=== PATIENT | female | born 1990 | race African-American/Black ===

== ENCOUNTER 2016-05-30 13:05 | Emergency (ER) | payer MEDICAID ==
[~2016-05-30] VITALS: Ht 157.5 cm; Wt 68.0 kg
[2016-05-30 13:26] VITALS: BP 160/100
== END 2016-05-30 16:32 | disposition left against medical advice (07) ==
LOC: ER 13:24
DX: R10.30 Lower abdominal pain, unspecified (principal); Z53.21 Procedure and treatment not carried out due to patient leaving prior to being seen by health care provider

== ENCOUNTER 2016-06-01 10:58 | Inpatient (IN) | payer MEDICAID ==
[~2016-06-01] VITALS: Ht 162.6 cm; Wt 72.0 kg
[2016-06-01] MEDS ORDERED: SODIUM CHLORIDE 0.9% 1,000 ML IVB ONE (11:20)
[2016-06-01] MEDS ORDERED: ONDANSETRON HCL 4 MG/2 ML VIAL IV ONE ×2 (11:30→14:15)
[2016-06-01] MEDS ORDERED: MORPHINE SULFATE 4 MG/ML SYRG IV ONE (11:30)
[2016-06-01 12:56] LABS: Basophils # (auto) 0 uL; Basophils % (auto) 0.4 % (0.0-2.0); Eosinophils # (auto) 0 uL; Eosinophils % (auto) 0.1 % (0.0-7.0); Hematocrit 43.8 % (36.0-46.0); Hemoglobin 14.3 g/dL (12.2-16.2); Lymphocytes # (auto) 1.5 uL; Lymphocytes % (auto) 12.6 % (10.0-50.0); Mean Corpuscular Hemoglobin 29.2 pg (28.0-32.0); Mean Corpuscular Hgb Conc. 32.6 g/dL (32.0-36.0); Mean Corpuscular Volume 89.5 fL (80.0-100.0); Mean Platelet Volume 8.8 fL (7.4-10.4); Monocytes # (auto) 0.7 uL; Monocytes % (auto) 6.1 % (0.0-12.0); Neutrophils # (auto) 9.4 uL; Neutrophils % (auto) 80.8 % (37.0-80.0); Platelet Count (auto) 322 10^3/uL (140-450); Red Cell Distribution Width 13.3 % (11.6-16.0); White Blood Cell 11.6 10^3/uL (4.4-10.8)
[2016-06-01 13:05] LABS: Albumin 4.7 g/dL (3.4-5.0); BUN/Creatinine Ratio 13.1; Bilirubin, Total 0.8 mg/dL (0.2-1.0); Calcium 10.2 mg/dL (8.5-10.1); Total Protein 8.9 g/dL (6.4-8.2)
[2016-06-01 13:08] LABS: Potassium 2.7 mmol/L (3.5-5.1)
[2016-06-01] MEDS ORDERED: POTASSIUM CHL 10% (20 MEQ/15ML) ORAL SOLN PO ONE (13:15)
[2016-06-01 13:23] LABS: Urine Bilirubin Negative (Negative); Urine Blood 2+ /uL (Negative); Urine Color Yellow (Yellow); Urine Glucose Normal (Normal); Urine Ketone 3+ (Negative); Urine Mucus FEW (None Seen); Urine Nitrite Negative (Negative); Urine RBC 9 /hpf (0 - 4); Urine Squamous Epithelial Cell FEW /hpf (<5)
[2016-06-01] MEDS ORDERED: KETOROLAC TROMETH 30 MG/ML 1ML VIAL IV ONE (14:15)
[2016-06-01] MEDS ORDERED: HYDROmorphone HCL 2 MG/ML VL IV ONE (14:15)
[2016-06-01] MEDS ORDERED: CIPROFLOXACIN 400MG/200ML 200 ML IV ONE (14:30)
[2016-06-01] MEDS ORDERED: POTASSIUM CHLORIDE 40 MEQ, LIDOCAINE 1% (LOCAL ANESTH.) 4 ML in SODIUM CHL 0.9% 250 ML IV ONE (15:15)
[2016-06-01] MEDS ORDERED: MORPHINE SULF INJ 2 MG/ML SYRINGE 1ML IV PRN (15:15)
[2016-06-01] MEDS ORDERED: PANTOPRAZOLE SODIUM 40 MG/10 ML VIAL IV ONE (15:15)
[2016-06-01] MEDS ORDERED: NITROGLYCERIN 0.4 MG SL TAB SL PRN (15:15)
[2016-06-01] MEDS ORDERED: POTASSIUM CHL 20 Meq TABLET PO ONE (15:15)
[2016-06-01] MEDS: ONDANSETRON HCL 4 MG/2 ML VIAL IV PRN (17:40)
[2016-06-01] MEDS: MORPHINE SULF INJ 2 MG/ML SYRINGE 1ML IV PRN (17:40)
[2016-06-01] MEDS: HYDROcodone-ACET 5/325MG TAB PO PRN (20:53)
[2016-06-01 22:48] VITALS: BP 134/49
[2016-06-01 23:00] VITALS: BP 134/49
[2016-06-02] MEDS: MORPHINE SULF INJ 2 MG/ML SYRINGE 1ML IV PRN ×5 (00:31→21:28)
[2016-06-02] MEDS: ONDANSETRON HCL 4 MG/2 ML VIAL IV PRN ×2 (00:32→16:59)
[2016-06-02] MEDS: SOD CHL 0.9%/ KCL 20MEQ 1,000 ML IV SCH ×3 (01:50→21:46)
[2016-06-02 05:30] VITALS: BP 103/58
[2016-06-02] MEDS: HYDROcodone-ACET 5/325MG TAB PO PRN ×3 (07:00→23:53)
[2016-06-02 07:01] LABS: Basophils # (auto) 0 uL; Basophils % (auto) 0.4 % (0.0-2.0); Eosinophils # (auto) 0 uL; Eosinophils % (auto) 0.5 % (0.0-7.0); Hemoglobin 11.5 g/dL (12.2-16.2); Lymphocytes # (auto) 3.3 uL; Lymphocytes % (auto) 39.4 % (10.0-50.0); Mean Corpuscular Hemoglobin 29.5 pg (28.0-32.0); Mean Corpuscular Volume 92.1 fL (80.0-100.0); Mean Platelet Volume 9.2 fL (7.4-10.4); Monocytes # (auto) 0.6 uL; Monocytes % (auto) 6.8 % (0.0-12.0); Neutrophils # (auto) 4.4 uL; Neutrophils % (auto) 52.9 % (37.0-80.0); Platelet Count (auto) 227 10^3/uL (140-450); Red Cell Distribution Width 13.5 % (11.6-16.0); White Blood Cell 8.4 10^3/uL (4.4-10.8)
[2016-06-02 07:17] LABS: BUN/Creatinine Ratio 12.5; Calcium 8.2 mg/dL (8.5-10.1); Magnesium 2.2 mg/dL (1.6-2.6); Potassium 3.5 mmol/L (3.5-5.1)
[2016-06-02] MEDS: PANTOPRAZOLE SODIUM 40 MG/10 ML VIAL IV SCH (08:58)
[2016-06-02 09:00] VITALS: BP 91/57
[2016-06-02] MEDS ORDERED: cefTRIAXone 1GM/50ML D5W 50 ML IV ONE (10:15)
[2016-06-02 11:51] VITALS: BP 108/65
[2016-06-02] MEDS ORDERED: DOXYCYCLINE 100 MG TAB PO ONE (14:15)
[2016-06-02 16:49] VITALS: BP 106/57
[2016-06-02] MEDS: DOXYCYCLINE 100 MG TAB PO SCH (21:27)
[2016-06-02 21:57] VITALS: BP 97/56
[2016-06-03] MEDS: MORPHINE SULF INJ 2 MG/ML SYRINGE 1ML IV PRN ×2 (03:26→07:54)
[2016-06-03] MEDS: ONDANSETRON HCL 4 MG/2 ML VIAL IV PRN ×4 (03:27→21:28)
[2016-06-03 05:00] VITALS: BP 116/75
[2016-06-03 06:32] LABS: BUN/Creatinine Ratio 10.8; Calcium 8.4 mg/dL (8.5-10.1); Potassium 3.8 mmol/L (3.5-5.1)
[2016-06-03] MEDS: SOD CHL 0.9%/ KCL 20MEQ 1,000 ML IV SCH ×2 (08:05→18:26)
[2016-06-03] MEDS: cefTRIAXone 1GM/50ML D5W 50 ML IV SCH (08:53)
[2016-06-03] MEDS: DOXYCYCLINE 100 MG TAB PO SCH ×2 (08:53→21:28)
[2016-06-03] MEDS: PANTOPRAZOLE SODIUM 40 MG/10 ML VIAL IV SCH (08:53)
[2016-06-03] MEDS: HYDROcodone-ACET 5/325MG TAB PO PRN (08:54)
[2016-06-03 09:10] VITALS: BP 117/73
[2016-06-03] MEDS: MUPIROCIN 2% OINT 22GM TOP SCH ×2 (12:41→21:38)
[2016-06-03] MEDS: HYDROmorphone HCL 2 MG/ML VL IV PRN ×3 (12:41→20:25)
[2016-06-03 13:00] VITALS: BP 115/75
[2016-06-03 16:40] VITALS: BP 95/58
[2016-06-03 21:47] VITALS: BP 114/74
[2016-06-04] MEDS: HYDROmorphone HCL 2 MG/ML VL IV PRN ×3 (00:28→08:40)
[2016-06-04] MEDS: SOD CHL 0.9%/ KCL 20MEQ 1,000 ML IV SCH (01:32)
[2016-06-04] MEDS: ONDANSETRON HCL 4 MG/2 ML VIAL IV PRN ×2 (04:33→08:40)
[2016-06-04 05:11] VITALS: BP 103/73
[2016-06-04 06:18] LABS: Basophils # (auto) 0 uL; Basophils % (auto) 0.4 % (0.0-2.0); Eosinophils # (auto) 0.2 uL; Eosinophils % (auto) 3.4 % (0.0-7.0); Hemoglobin 12.2 g/dL (12.2-16.2); Lymphocytes # (auto) 2.5 uL; Lymphocytes % (auto) 38.8 % (10.0-50.0); Mean Corpuscular Hemoglobin 29.8 pg (28.0-32.0); Mean Corpuscular Volume 90.4 fL (80.0-100.0); Mean Platelet Volume 8.6 fL (7.4-10.4); Monocytes # (auto) 0.4 uL; Monocytes % (auto) 6.5 % (0.0-12.0); Neutrophils # (auto) 3.2 uL; Neutrophils % (auto) 50.9 % (37.0-80.0); Platelet Count (auto) 235 10^3/uL (140-450); Red Cell Distribution Width 12.6 % (11.6-16.0); White Blood Cell 6.4 10^3/uL (4.4-10.8)
[2016-06-04 08:41] LABS: Potassium 3.9 mmol/L (3.5-5.1)
[2016-06-04 08:43] LABS: BUN/Creatinine Ratio 7.4
[2016-06-04 08:44] LABS: Calcium 8.4 mg/dL (8.5-10.1)
[2016-06-04] MEDS: cefTRIAXone 1GM/50ML D5W 50 ML IV SCH (08:53)
[2016-06-04 09:00] VITALS: BP 116/80
[2016-06-04] MEDS: PANTOPRAZOLE SODIUM 40 MG/10 ML VIAL IV SCH (10:13)
[2016-06-04] MEDS: DOXYCYCLINE 100 MG TAB PO SCH (10:13)
[2016-06-04] MEDS: MUPIROCIN 2% OINT 22GM TOP SCH (10:24)
[2016-06-04 10:42] VITALS: BP 116/80
== END 2016-06-04 12:10 | disposition home or self-care (01) | DRG 139 ==
LOC: EDUNIT# 10:58 → EDBD 10:58 → ER 11:08 → TELE 11:09 → TELE-WESTW 22:46
PROVIDERS: ADMIT Internal Medicine; ATTEND Internal Medicine
DX: J18.9 Pneumonia, unspecified organism (principal); N20.0 Calculus of kidney; E87.6 Hypokalemia; E86.0 Dehydration; N73.9 Female pelvic inflammatory disease, unspecified; F12.90 Cannabis use, unspecified, uncomplicated; G43.A0 Cyclical vomiting, in migraine, not intractable; K59.00 Constipation, unspecified; Z82.49 Family history of ischemic heart disease and other diseases of the circulatory system; Z90.89 Acquired absence of other organs
CPT/HCPCS: 36415; 74176; 80048; 80053; 81001; 81025; 82150; 83690; 83735; 85025; 87081; 87086; 87400; 96374; 96375; 96376; C9113; J0696; J1885; J2001; J2405

== ENCOUNTER 2016-08-15 03:55 | Observation (INO) | payer OTHER, MEDICAID ==
[~2016-08-15] VITALS: Ht 157.5 cm; Wt 59.0 kg
[2016-08-15 04:56] LABS: Basophils # (auto) 0 uL; Eosinophils # (auto) 0 uL; Hematocrit 44.1 % (36.0-46.0); Hemoglobin 14.7 g/dL (12.2-16.2); Lymphocytes # (auto) 1.4 uL; Mean Corpuscular Hemoglobin 30.2 pg (28.0-32.0); Mean Corpuscular Hgb Conc. 33.3 g/dL (32.0-36.0); Mean Corpuscular Volume 90.6 fL (80.0-100.0); Mean Platelet Volume 8.6 fL (7.4-10.4); Monocytes # (auto) 0.4 uL; Monocytes % (auto) 3.7 % (0.0-12.0); Neutrophils # (auto) 9.9 uL; Neutrophils % (auto) 84.3 % (37.0-80.0); Platelet Count (auto) 340 10^3/uL (140-450); Red Cell Distribution Width 13.1 % (11.6-16.0); White Blood Cell 11.7 10^3/uL (4.4-10.8)
[2016-08-15 05:10] LABS: Albumin 4.5 g/dL (3.4-5.0); BUN/Creatinine Ratio 17.1; Calcium 9.4 mg/dL (8.5-10.1); Magnesium 2.3 mg/dL (1.6-2.6); Potassium 3.3 mmol/L (3.5-5.1)
[2016-08-15 05:13] LABS: Bilirubin, Total 0.7 mg/dL (0.2-1.0)
[2016-08-15] MEDS ORDERED: SODIUM CHLORIDE 0.9% 1,000 ML IV ONE (06:40)
[2016-08-15] MEDS ORDERED: NALBUPHINE HCL 10 MG/1ml INJECTION IV ONE ×2 (06:45→10:30)
[2016-08-15] MEDS ORDERED: METOCLOPRAMIDE HCL 5MG/ml INJ 2ml VIAL IV ONE (06:45)
[2016-08-15 06:52] LABS: Urine Color Brown (Yellow); Urine Glucose TRACE mg/dL (Normal); Urine Mucus MANY (None Seen); Urine Nitrite Negative (Negative); Urine RBC 233 /hpf (0 - 4); Urine Squamous Epithelial Cell MOD /hpf (<5)
[2016-08-15 07:03] LABS: Urine Bilirubin Negative (Negative); Urine Blood 3+ /uL (Negative); Urine Ketone 3+ (Negative)
[2016-08-15] MEDS ORDERED: PROMETHAZINE HCL 25 MG/ML 1ML IV ONE (10:30)
[2016-08-15 12:55] VITALS: BP 102/64
== END 2016-08-15 15:51 | disposition home or self-care (01) | DRG 392 ==
LOC: ER 03:55 → EDBD 03:55 → UNDOADMOB 03:56 → OVERFLOW 03:56 → UNDODISOB 15:51 → ER 15:51
PROVIDERS: ADMIT Emergency Medicine; ATTEND Emergency Medicine
DX: K52.9 Noninfective gastroenteritis and colitis, unspecified (principal); N39.0 Urinary tract infection, site not specified; Z98.890 Other specified postprocedural states
CPT/HCPCS: 36415; 74176; 80053; 81001; 83690; 83735; 84702; 85025; 96361; 96374; 96375; 96376; 99285; G0378; J2300; J2550; J2765

== ENCOUNTER 2017-07-23 08:43 | Emergency (ER) | payer OTHER, MEDICAID ==
[~2017-07-23] VITALS: Ht 157.5 cm; Wt 74.8 kg
[2017-07-23 09:29] VITALS: BP 136/88
[2017-07-23] MEDS ORDERED: SODIUM CHLORIDE 0.9% 1,000 ML IVB ONE (09:39)
[2017-07-23] MEDS ORDERED: PROMETHAZINE HCL 25 MG/ML 1ML IV ONE (09:45)
[2017-07-23 09:49] LABS: Basophils # (auto) 0 uL; Basophils % (auto) 0.3 % (0.0-2.0); Eosinophils # (auto) 0 uL; Hematocrit 42.5 % (36.0-46.0); Hemoglobin 14.3 g/dL (12.2-16.2); Lymphocytes # (auto) 1.2 uL; Lymphocytes % (auto) 12.5 % (10.0-50.0); Mean Corpuscular Hemoglobin 30.4 pg (28.0-32.0); Mean Corpuscular Hgb Conc. 33.6 g/dL (32.0-36.0); Mean Corpuscular Volume 90.6 fL (80.0-100.0); Monocytes # (auto) 0.7 uL; Monocytes % (auto) 7.1 % (0.0-12.0); Neutrophils # (auto) 7.5 uL; Neutrophils % (auto) 80.1 % (37.0-80.0); Platelet Count (auto) 290 10^3/uL (140-450); Red Cell Distribution Width 12.9 % (11.8-14.3); White Blood Cell 9.4 10^3/uL (4.4-10.8)
[2017-07-23 10:13] LABS: Magnesium 2.3 mg/dL (1.6-2.6)
[2017-07-23 10:14] LABS: Alanine Aminotransferase 22 U/L (13-56); Albumin 4.2 g/dL (3.4-5.0); Alkaline Phosphatase 52 U/L (45-117); Anion Gap 9 (5-15); Aspartate Aminotransferase 15 U/L (15-37); Bilirubin, Total 0.7 mg/dL (0.2-1.0); Blood Urea Nitrogen 13 mg/dL (7-18); Calcium 9.4 mg/dL (8.5-10.1); Carbon Dioxide 26 mmol/L (21-32); Chloride 106 mmol/L (98-107); GFR African American 94 mL/min; GFR Non-African American 78 mL/min; Glucose 110 mg/dL (74-106); Potassium 3.6 mmol/L (3.5-5.1); Sodium 141 mmol/L (136-145); Total Protein 8.7 g/dL (6.4-8.2)
[2017-07-23] MEDS ORDERED: ACETAMINOPHEN 500 MG TAB PO ONE (10:16)
[2017-07-23 10:45] LABS: Urine Bacteria NONE SEEN /hpf (None Seen); Urine Blood 3+ /uL (Negative); Urine Mucus MANY (None Seen); Urine Specific Gravity 1.037 (1.001-1.035); Urine WBC 60 /hpf (0 - 5)
[2017-07-23 10:47] LABS: Amphetamine Screen, Urine NEGATIVE (NEGATIVE); Barbiturate Scree,Urine NEGATIVE (NEGATIVE); Benzodiazephine Screen, Urine NEGATIVE (NEGATIVE); Cannabinoid Screen, Urine POSITIVE (NEGATIVE); Cocaine Screen, Urine NEGATIVE (NEGATIVE); Opiate Scree,Urine NEGATIVE (NEGATIVE); Phencyclidine Screen, Urine NEGATIVE (NEGATIVE)
[2017-07-23] MEDS ORDERED: cefTRIAXone 1GM/10ml IVPUSH 10 ML IV ONE (11:00)
== END 2017-07-23 11:34 | disposition home or self-care (01) ==
LOC: ER 08:43
DX: N39.0 Urinary tract infection, site not specified (principal); R11.10 Vomiting, unspecified; F12.10 Cannabis abuse, uncomplicated; Z90.89 Acquired absence of other organs
CPT/HCPCS: 36415; 71046; 80053; 80307; 81001; 83690; 83735; 84484; 84702; 85025; 93005; 96361; 96374; 96375; 99285; J2550; J7030